=== PATIENT | male | born 1955 | race Caucasian/White ===

== ENCOUNTER → 2019-06-01 11:42 | Outpatient (BNVA) | payer OTHER, SELFPAY | PROVIDERS: Family Provider Nurse Practitioner Family; PCP Nurse Practitioner Family; Visit Provider Nurse Practitioner Family | DX: E78.5 Hyperlipidemia, unspecified (principal); I10 Essential (primary) hypertension | CPT/HCPCS: 80053; 80061; 85025 ==

== ENCOUNTER → 2019-07-05 14:18 | Outpatient (BNVA) | payer OTHER, SELFPAY | PROVIDERS: Visit Provider Urology | DX: C61 Malignant neoplasm of prostate (principal); N39.3 Stress incontinence (female) (male) | CPT/HCPCS: 81001 ==

== ENCOUNTER → 2019-09-20 16:00 | Outpatient (BNVA) | payer MEDICARE, SELFPAY | PROVIDERS: Visit Provider Nurse Practitioner Family | DX: I10 Essential (primary) hypertension (principal); E78.5 Hyperlipidemia, unspecified; E78.2 Mixed hyperlipidemia | CPT/HCPCS: 80053; 80061; 85025 ==

== ENCOUNTER → 2020-01-03 15:11 | Outpatient (BNVA) | payer MEDICARE, SELFPAY | PROVIDERS: Visit Provider Nurse Practitioner Family | DX: N39.3 Stress incontinence (female) (male) (principal); N18.9 Chronic kidney disease, unspecified; C61 Malignant neoplasm of prostate | CPT/HCPCS: 80048; 81001; 84153 ==

== ENCOUNTER → 2020-03-20 12:11 | Outpatient (BNVA) | payer MEDICARE, SELFPAY | PROVIDERS: Visit Provider Family Medicine | DX: E78.2 Mixed hyperlipidemia (principal); I10 Essential (primary) hypertension; E78.5 Hyperlipidemia, unspecified | CPT/HCPCS: 80053; 80061; 85025 ==

== ENCOUNTER → 2020-08-27 16:02 | Outpatient (BNVA) | payer MEDICARE, SELFPAY | PROVIDERS: PCP Family Medicine; Visit Provider Urology | DX: C61 Malignant neoplasm of prostate (principal); N39.3 Stress incontinence (female) (male) | CPT/HCPCS: 81003; 84153; 87077; 87086; 87184 ==

== ENCOUNTER → 2020-09-16 12:06 | Outpatient (BNVA) | payer MEDICARE, SELFPAY | PROVIDERS: PCP Family Medicine; Visit Provider Family Medicine | DX: E78.2 Mixed hyperlipidemia (principal); I10 Essential (primary) hypertension | CPT/HCPCS: 80053; 80061; 85025 ==

== ENCOUNTER → 2020-10-04 10:01 | Outpatient (BNVA) | payer MEDICARE, SELFPAY | PROVIDERS: PCP Family Medicine; Visit Provider Urology | DX: R82.81 Pyuria (principal) | CPT/HCPCS: 87086 ==

== ENCOUNTER → 2021-03-18 10:26 | Outpatient (BNVA) | payer MEDICARE, SELFPAY | PROVIDERS: PCP Family Medicine; Visit Provider Urology | DX: C61 Malignant neoplasm of prostate (principal); N18.2 Chronic kidney disease, stage 2 (mild) | CPT/HCPCS: 81003; 84153 ==

== ENCOUNTER → 2021-04-16 15:56 | Outpatient (BNVA) | payer MEDICARE, SELFPAY | PROVIDERS: PCP Family Medicine; Visit Provider Family Medicine | DX: E78.2 Mixed hyperlipidemia; I10 Essential (primary) hypertension | CPT/HCPCS: 80053; 80061; 84443; 85025 ==

== ENCOUNTER → 2021-08-18 14:12 | Outpatient (BNVA) | payer MEDICARE, SELFPAY | PROVIDERS: PCP Family Medicine; Visit Provider Urology | DX: C61 Malignant neoplasm of prostate (principal); N39.3 Stress incontinence (female) (male); N52.9 Male erectile dysfunction, unspecified | CPT/HCPCS: 81003; 84153 ==

== ENCOUNTER → 2021-09-04 10:50 | Outpatient (BNVA) | payer MEDICARE, SELFPAY | PROVIDERS: PCP Family Medicine; Visit Provider Nurse Practitioner Family | DX: N39.0 Urinary tract infection, site not specified (principal) | CPT/HCPCS: 81003; 87077; 87086; 87184 ==

== ENCOUNTER → 2022-01-01 17:13 | Outpatient (BNVA) | payer MEDICARE, SELFPAY | PROVIDERS: PCP Family Medicine; Visit Provider Family Medicine | DX: E78.5 Hyperlipidemia, unspecified (principal); I10 Essential (primary) hypertension | CPT/HCPCS: 80053; 80061; 84443; 85025 ==

== ENCOUNTER → 2022-01-26 15:46 | Outpatient (BNVA) | payer MEDICARE, SELFPAY | PROVIDERS: PCP Family Medicine; Visit Provider Nurse Practitioner Family | DX: N39.0 Urinary tract infection, site not specified (principal); Z12.11 Encounter for screening for malignant neoplasm of colon | CPT/HCPCS: 81003; 87086 ==

== ENCOUNTER 2022-02-19 12:14 | Outpatient (CLI) | payer MEDICARE, SELFPAY ==
[2022-02-19 13:29] LABS: Prostate Specific AG Urology 1.63 ng/mL (0-4)
== END 2022-02-19 12:15 | disposition home or self-care (01) ==
LOC: LAB 12:19
PROVIDERS: PCP Family Medicine; Visit Provider Urology
DX: C61 Malignant neoplasm of prostate (principal); R97.21 Rising PSA following treatment for malignant neoplasm of prostate
CPT/HCPCS: 36415; 81003; 84153; 99213

== ENCOUNTER → 2022-02-24 13:27 | Outpatient (BNVA) | payer MEDICARE, SELFPAY | PROVIDERS: PCP Family Medicine; Referring Provider Nurse Practitioner Family; Visit Provider Surgery | DX: Z12.11 Encounter for screening for malignant neoplasm of colon (principal) | CPT/HCPCS: 99203 ==

== ENCOUNTER 2022-04-08 07:29 | Day surgery (SDC) | payer MEDICARE, SELFPAY ==
[2022-04-06 08:46] VITALS: BMI 24.3
[2022-04-08 08:02] VITALS: BP 125/83; PULSE 94; RESP 18; TEMP 36.4; O2SAT 94
[2022-04-08] MEDS: sodium chloride 0.9% 1,000 ML 30 ML IV (08:09)
--- NOTE | 2022-04-08 08:20 | ANES.PREANE2 ---
Pre-Anesthetic Assessment Height/Weight: Height 1.75 m Weight 74.843 kg Temp Pulse Resp BP Pulse Ox O2 Del Method 97.6 F 94 18 125/83 94 04/08/22 08:02 04/08/22 08:02 04/08/22 08:02 04/08/22 08:02 04/08/22 08:02 04/08/22 08:02 Preop Diagnosis: positive cologuard, screening Operation Date: 04/08/22 09:00 Proposed Procedures p Colonoscopy 95269,Z12.11(Not Applicable) - Alvarado Shea, DO Was Beta Colleen taken within 24 hours: N/A Was Clonidine taken within 24 hours: N/A Last intake: Intake Last Liquid Date 04/07/22 Last Liquid Time 23:00 Last Solid Date 04/06/22 Last Solid Time 21:00 Social Tobacco and No alcohol 1 pack(s) per day last cig last night Exam alert, oriented x 3, clear to auscultation bilaterally and regular rate & rhythm Airway Submandibular: within normal limits Cervical ROM: within normal limits Mallampati: Class III Comments: Comments: denies loose teeth but appears to have very poor dentition History/ROS No significant history except as noted Pulmonary current smoker CV/HEM Hypertension HLD patient reports Reduced kidney function Hepatic None reported GI None reported Metabolic Hyperlipidemia Musc/skel None reported Neuropsych None reported Anesthetic Plan ASA status: 2 Anesthesia: Anesthesia Evaluation and MAC Risk of > 500 ml blood loss (7ml/kg in children): Yes, adequate IV access and fluids planned Other Pertinent Information Patient is afraid of being injected with covid vaccine without consent while he is under anesthesia. He also refuses blood products due to the potential for covid tainted blood. Medications/Allergies Home Medications Medication Instructions Recorded Confirmed Last Taken Type TRIMIX 03/18/21 02/24/22 Unknown History lisinopril 10 mg tablet 10 mg PO DAILY #90 tabs 01/01/22 04/08/22 04/07/22 Rx nufsqwof-ehm-duokv acid 300 1 tab PO DAILY 02/19/22 04/08/22 04/07/22 History mcg-lycopene 600 mcg-lutein 300 mcg tablet (Centrum Silver Men) atorvastatin 40 mg tablet 40 mg PO DAILY 04/08/22 04/08/22 04/07/22 History cholecalciferol (vitamin D3) 125 125 mcg PO DAILY 04/08/22 04/08/22 04/07/22 History mcg (5,000 unit) tablet (Vitamin D3) Allergies Allergy/AdvReac Type Severity Reaction Status Date / Time No Known Allergies Allergy Verified 04/08/22 07:58 Current Medications Generic Name Dose Route Start Last Admin Trade Name Heverq PRN Reason Stop Dose Admin Sodium Chloride 1,000 mls @ 30 mls/hr 04/08/22 07:45 04/08/22 08:09 Sodium Chloride 0.9% IV 04/09/22 07:44 30 mls/hr .Q24H SOSA Administration PFSH Anesthesia Medical History Chronic kidney disease Erectile dysfunction Hyperlipemia Hypertension Mixed hyperlipidemia Prostate CA Smoking Urinary incontinence, stress, male Surgical History H/O hernia repair History of colonoscopy History of radical prostatectomy Family History Mother Kidney disease Arthritis Father Alzheimer disease Stroke Brother Cancer Social History Smoking and tobacco status: current every day smoker (1PPD) Alcohol intake: never Lives independently: Yes Household members: significant other Marital status: Current occupational status: retired History of recent travel: No Data Anesthesia Cardiac Studies: No Data to Display
--- NOTE | 2022-04-08 09:18 | P.HP_ITS ---
Providers/Chief Complaint Primary Care Provider: Shereen Mirza MD Chief Complaint: Z12.11 History of Present Illness Ayad Rodrigues is a 66 year old male here for colonoscopy Medications/Allergies Home Medications Medication Instructions Recorded Confirmed Last Taken Type TRIMIX 03/18/21 02/24/22 Unknown History lisinopril 10 mg tablet 10 mg PO DAILY #90 tabs 01/01/22 04/08/22 04/07/22 Rx tvgmjzho-hol-bqdsf acid 300 1 tab PO DAILY 02/19/22 04/08/22 04/07/22 History mcg-lycopene 600 mcg-lutein 300 mcg tablet (Centrum Silver Men) atorvastatin 40 mg tablet 40 mg PO DAILY 04/08/22 04/08/22 04/07/22 History cholecalciferol (vitamin D3) 125 125 mcg PO DAILY 04/08/22 04/08/22 04/07/22 History mcg (5,000 unit) tablet (Vitamin D3) Allergies Allergy/AdvReac Type Severity Reaction Status Date / Time No Known Allergies Allergy Verified 04/08/22 07:58 PFSH Acute PFSH: Medical History Chronic kidney disease Erectile dysfunction Hyperlipemia Hypertension Mixed hyperlipidemia Prostate CA Smoking Urinary incontinence, stress, male Surgical History H/O hernia repair History of colonoscopy History of radical prostatectomy Family History Mother Kidney disease Arthritis Father Alzheimer disease Stroke Brother Cancer Social History Smoking and tobacco status: current every day smoker (1PPD) Alcohol intake: never Lives independently: Yes Household members: significant other Marital status: Current occupational status: retired History of recent travel: No Vitals/I&O/Wt Last Vital Signs Temp 97.6 F 04/08/22 08:02 Pulse 94 04/08/22 08:02 Resp 18 04/08/22 08:02 BP 125/83 04/08/22 08:02 Pulse Ox 94 04/08/22 08:02 O2 Del Method 04/08/22 08:02 A&P Assessment and plan (1) Colon cancer screening: Plan Colonoscopy Attestations Medical Necessity Statement*: Home Coding Level of Care Code Acute Ampoule Filler for Chg Fwd Diagnoses Colon cancer screening Z12.11
[2022-04-08 09:48] VITALS: BP 97/62; PULSE 78; RESP 18; TEMP 36.1; O2SAT 95
[2022-04-08 09:59] VITALS: BP 101/81; PULSE 80; RESP 18; O2SAT 94
--- NOTE | 2022-04-08 14:26 | ANE.PACU2 ---
Inpatient post-anesthesia follow up: Airway intact: Yes Vital signs: Temperature 97.0 F Pulse Rate 80 Respiratory Rate 18 Blood Pressure 101/81 Pulse Oximetry 94 Oxygen Delivery Me thod Room Air Oxygen Flow Rate Fraction of Inspir ed Oxygen Hydration adequate: Yes Nausea and vomiting: No Pain level: 1 Mental status: Baseline
== END 2022-04-08 10:20 | disposition home or self-care (01) ==
PROVIDERS: PCP Family Medicine; Visit Provider Surgery
PROC: 0DJD8ZZ Inspection of Lower Intestinal Tract, Via Natural or Artificial Opening Endoscopic (ICD-10-PCS; CPT 45378; principal; 2022-04-08 09:00)
DX: Z12.11 Encounter for screening for malignant neoplasm of colon (principal); K63.5 Polyp of colon; E78.2 Mixed hyperlipidemia; Z85.46 Personal history of malignant neoplasm of prostate; I12.9 Hypertensive chronic kidney disease with stage 1 through stage 4 chronic kidney disease, or unspecified chronic kidney disease; N18.9 Chronic kidney disease, unspecified; F17.210 Nicotine dependence, cigarettes, uncomplicated
CPT/HCPCS: 45385; 88305; J2704; J7030

== ENCOUNTER → 2022-05-05 16:41 | Outpatient (BNVA) | payer MEDICARE, SELFPAY | PROVIDERS: PCP Family Medicine; Visit Provider Surgery | DX: Z09 Encounter for follow-up examination after completed treatment for conditions other than malignant neoplasm (principal); D12.6 Benign neoplasm of colon, unspecified | CPT/HCPCS: 99212 ==

== ENCOUNTER → 2022-07-21 14:00 | Outpatient (BNVA) | payer MEDICARE, SELFPAY | PROVIDERS: PCP Family Medicine; Visit Provider Family Medicine | DX: T14.8XXA Other injury of unspecified body region, initial encounter (principal); W57.XXXA Bitten or stung by nonvenomous insect and other nonvenomous arthropods, initial encounter | CPT/HCPCS: 86618; 86666; 86757 ==

== ENCOUNTER → 2022-08-07 11:04 | Outpatient (BNVA) | payer MEDICARE, SELFPAY | PROVIDERS: PCP Family Medicine; Visit Provider Urology | DX: R97.21 Rising PSA following treatment for malignant neoplasm of prostate (principal) | CPT/HCPCS: 84153 ==

== ENCOUNTER → 2022-08-18 13:38 | Outpatient (BNVA) | payer MEDICARE, SELFPAY | PROVIDERS: PCP Family Medicine; Visit Provider Urology | DX: R97.21 Rising PSA following treatment for malignant neoplasm of prostate (principal); C61 Malignant neoplasm of prostate | CPT/HCPCS: 81003; 99213 ==

== ENCOUNTER → 2023-01-26 09:05 | Outpatient (BNVA) | payer MEDICARE, SELFPAY | PROVIDERS: PCP Family Medicine; Visit Provider Family Medicine | DX: C61 Malignant neoplasm of prostate (principal); E55.9 Vitamin D deficiency, unspecified; E78.5 Hyperlipidemia, unspecified; I10 Essential (primary) hypertension | CPT/HCPCS: 80053; 80061; 82306; 84443; 85025; G0103 ==

== ENCOUNTER → 2023-11-16 09:12 | Outpatient (BNVA) | payer MEDICARE, SELFPAY | PROVIDERS: PCP Family Medicine; Visit Provider Family Medicine | DX: R30.0 Dysuria (principal); I10 Essential (primary) hypertension; E78.5 Hyperlipidemia, unspecified; E55.9 Vitamin D deficiency, unspecified; C61 Malignant neoplasm of prostate; R97.21 Rising PSA following treatment for malignant neoplasm of prostate; Z85.46 Personal history of malignant neoplasm of prostate | CPT/HCPCS: 80053; 80061; 81003; 84443; 85025; 87086; G0103 ==

== ENCOUNTER → 2024-09-13 14:44 | Outpatient (BNVA) | payer MEDICARE, SELFPAY | PROVIDERS: PCP Nurse Practitioner Family; Visit Provider Nurse Practitioner Family | DX: E78.5 Hyperlipidemia, unspecified (principal); I10 Essential (primary) hypertension; C61 Malignant neoplasm of prostate | CPT/HCPCS: 80053; 80061; 84153; 84443; 85025 ==